=== PATIENT | male | born 1960 | race African-American/Black ===

== ENCOUNTER 2018-10-26 23:30 | Emergency (ER) | payer MEDICAID, MEDICARE, OTHER ==
[~2018-10-26] VITALS: Ht 175.3 cm; Wt 88.6 kg
[~2018-10-26 23:30] MED LIST: GABA-531 PO; HYDR-3965 PO
[2018-10-26] MEDS ORDERED: SIMV-259 PO (23:36)
[2018-10-26] MEDS ORDERED: WARF2 PO (23:36)
[2018-10-26] MEDS ORDERED: DOCU250C91 PO (23:36)
[2018-10-26] MEDS ORDERED: MIRT15 PO (23:36)
[2018-10-26] MEDS ORDERED: MELO-107 PO (23:36)
[2018-10-27] MEDS ORDERED: HYDROCODONE/ACETAMINOPHEN 5-325 MG TABLET PO ONE (03:45)
[2018-10-27 04:04] VITALS: BP 130/74
== END 2018-10-27 04:10 | disposition home or self-care (01) ==
LOC: EMS 23:30
DX: R07.81 Pleurodynia (principal); E78.00 Pure hypercholesterolemia, unspecified; Z79.01 Long term (current) use of anticoagulants; Z79.899 Other long term (current) drug therapy; W19.XXXA Unspecified fall, initial encounter; Y93.89 Activity, other specified; Y92.89 Other specified places as the place of occurrence of the external cause; Y99.8 Other external cause status
CPT/HCPCS: 71100

== ENCOUNTER 2018-10-30 14:19 | Emergency (ER) | payer MEDICARE ==
[~2018-10-30] VITALS: Ht 175.3 cm; Wt 86.4 kg
[~2018-10-30 14:19] MED LIST changes: +DOCU250C91 PO; -HYDR-3965 PO; +MELO-107 PO; +MIRT15 PO; +SIMV-259 PO; +WARF2 PO
[2018-10-30 15:35] LABS: BASOPHILS % (AUTO) 1.1 % (0.0-2.0); EOSINOPHILS % (AUTO) 2.4 % (1.0-6.0); HEMATOCRIT 43.6 % (41-53); HEMOGLOBIN 15.1 g/dL (13.5-17.5); LYMPHOCYTES # (AUTO) 1.5 K/uL (1.0-4.8); LYMPHOCYTES % (AUTO) 30.5 % (22.0-44.0); MEAN CORPUSCULAR HEMOGLOBIN 32.6 pg (26.0-34.0); MEAN CORPUSCULAR HGB CONC 34.7 G/dL (31.0-37.0); MEAN CORPUSCULAR VOLUME 94 fL (80-100); MONOCYTES # (AUTO) 0.5 K/uL (0.1-1.0); MONOCYTES % (AUTO) 10.8 % (2.0-9.0); NEUTROPHILS # (AUTO) 2.8 K/uL (1.8-7.7); NEUTROPHILS % (AUTO) 55.2 % (40.0-70.0); PLATELET COUNT (AUTO) 157 K/uL (150-450); RED BLOOD CELL COUNT(AUTO) 4.64 MIL/uL (4.50-5.90); RED CELL DISTRIBUTION WIDTH 12.5 % (11.5-14.5)
[2018-10-30 15:43] LABS: PROTHROMBIN TIME 10.4 SEC (9.4-11.6)
[2018-10-30 16:06] LABS: PLATELET MORPHOLOGY COMMENT LARGE PLTS PRESENT
[2018-10-30] MEDS ORDERED: IOVERSOL 320 MG/ML 100 ML VIAL ONE (16:32)
[2018-10-30] MEDS ORDERED: SODIUM CHLORIDE 0.9% 100 ML ONE (16:33)
[2018-10-30 16:35] LABS: ANION GAP 7 mmol/L (8-16); CALCIUM, TOTAL 9.1 mg/dL (8.8-10.5); CARBON DIOXIDE 30 mmol/L (22-29); CHLORIDE 104 mmol/L (98-107); CREATININE 0.79 mg/dL (0.60-1.30); GLOMERULAR FILTR. RATE CALC > 60 mL/min (>60); GLUCOSE,RANDOM 96 mg/dL (70-110); POTASSIUM 4.1 mmol/L (3.5-5.1); SODIUM SERUM 141 mmol/L (136-145); UREA NITROGEN, BLOOD 9 mg/dL (7-18)
[2018-10-30 16:41] LABS: ALANINE AMINOTRANSFERASE 38 U/L (12-78); ALBUMIN 3.8 g/dL (3.4-5.0); ALKALINE PHOSPHATASE 88 U/L (46-116); ASPARTATE AMINOTRANSFERASE 27 U/L (15-37); BILIRUBIN,TOTAL 0.8 mg/dL (0.1-1.0); TOTAL PROTEIN, SERUM 7.7 g/dL (6.4-8.2)
[2018-10-30] MEDS ORDERED: LIDOCAINE 5% TRANSDERMAL PATCH TD ONE (19:30)
[2018-10-30 20:43] VITALS: BP 135/74
== END 2018-10-30 21:41 | disposition home or self-care (01) ==
LOC: EMS 14:20
DX: S20.211A Contusion of right front wall of thorax, initial encounter (principal); R79.1 Abnormal coagulation profile; E78.00 Pure hypercholesterolemia, unspecified; Z79.899 Other long term (current) drug therapy; W01.0XXA Fall on same level from slipping, tripping and stumbling without subsequent striking against object, initial encounter; Y93.01 Activity, walking, marching and hiking; Y92.89 Other specified places as the place of occurrence of the external cause; Y99.8 Other external cause status
CPT/HCPCS: 36415; 71045; 71275; 80053; 85025; 85610; 93005; 99284; J7050; Q9967

== ENCOUNTER 2019-07-04 10:42 | Emergency (ER) | payer BC, MEDICARE ==
[~2019-07-04] VITALS: Ht 175.3 cm; Wt 86.4 kg
[~2019-07-04 10:42] MED LIST changes: +DOCU-342 PO; -DOCU250C91 PO
[2019-07-04] MEDS ORDERED: HYDROCODONE/ACETAMINOPHEN 5-325 MG TABLET PO ONE (13:00)
[2019-07-04 13:40] VITALS: BP 149/98
== END 2019-07-04 14:19 | disposition home or self-care (01) ==
LOC: EMS 10:44
DX: S63.690A Other sprain of right index finger, initial encounter (principal); S80.02XA Contusion of left knee, initial encounter; R03.0 Elevated blood-pressure reading, without diagnosis of hypertension; E78.00 Pure hypercholesterolemia, unspecified; F17.210 Nicotine dependence, cigarettes, uncomplicated; Z98.890 Other specified postprocedural states; Z88.5 Allergy status to narcotic agent; W01.0XXA Fall on same level from slipping, tripping and stumbling without subsequent striking against object, initial encounter; Y93.89 Activity, other specified; Y92.89 Other specified places as the place of occurrence of the external cause; Y99.8 Other external cause status
CPT/HCPCS: 70450